=== PATIENT | male | born 2000 | race Caucasian/White ===

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

== ENCOUNTER 2023-08-24 12:50 | Emergency (ER) | payer BC, SELFPAY ==
[2023-08-24 12:58] VITALS: BP 112/67; PULSE 85; RESP 20; TEMP 36.8; O2SAT 100
--- NOTE | 2023-08-24 13:38 | ED.URI ---
HPI - URI/Sore Throat General Chief Complaint: Upper Respiratory Infection Stated Complaint: Ride side back shoulder pain Time Seen by Provider: 08/24/23 13:20 Source: patient, RN notes reviewed and old records reviewed Mode of arrival: ambulatory Limitations: no limitations History of Present Illness HPI Narrative: 22 year old male presents to [facility] with complaints of pain to his right side of back at shoulder region when he takes a deep breath which started this morning. Patient reports no shortness of breath or any recent cold or cough symptoms. Patient does voice history of child hameed asthma and he does vape. Pateint denies any fevers, chills or sweats or any body aches. Lungs are clear to ascultation with SAO2 100% on room air with no tachypnea. Patient denies any recent injury.or any history of any blood clotting dyscrasia. MD elicited complaint: other (pain right posterior back along shoulder blade when he takes deep breath) Pertinent past history: asthma (childhood) and other (vapes) Onset (ago): hour(s) (rhis morning) Consistency: intermittent Pain scale (0-10): 4 Able to tolerate fluids by mouth: Yes Exacerbating factors: deep breaths Treatments prior to arrival: none Related Data Allergies Allergy/AdvReac Type Severity Reaction Status Date / Time No Known Allergies Allergy Verified 08/24/23 13:20 Review of Systems Review of Systems: CONSTITUTIONAL: Denies malaise, chills, sweats, or fever. EYES: Denies visual changes, redness, or discharge. ENT: Reports rhinorrhea, congestion, sinus pain, otalgia and sore throat. CARDIOVASCULAR: Denies chest pain, palpitations, or edema. RESPIRATORY: Reports no cough.? Denies dyspnea.Reports pain to right posterior back along scpula with deep breathing intermittent GASTROINTESTINAL: Denies abdominal pain, nausea, vomiting, diarrhea SKIN: Denies rash or itching. MUSCULOSKELETAL: Denies myalgia. NEUROLOGIC: Denies headache. All systems reviewed & are unremarkable except as noted in HPI and below PMFSH Past Medical History Medical History (Updated 08/26/23 @ 11:52 by Nithya Morales NP) Anxiety and depression Asthma childhood Family History Family History Other Prediabetes Social History Social History (Updated 08/26/23 @ 11:53 by Nithya Morales NP) Smoking status: Current every day smoker Tobacco type: e-cigarettes/vaping Alcohol intake: never Substance use: current Substance use type: marijuana Living arrangements: with family Gender identity (if verbalized by the patient): Male Comments At time of signature, agree with nursing past medical, surgical, social and family history. There is no relevant family history pertinent to the presenting complaint Exam Narrative: GENERAL: Well-appearing, well-nourished, and in no acute distress. HEAD: Normocephalic EYES: PERRLA, conjunctivae clear ENT: Nares clear, turbinates edematous and erythematous, clear discharge. Mucous membranes moist. TM pearly guerra with dull light reflex bilaterally; no tragal tenderness. Oropharynx erythematous without lesions. Tonsils not enlarged and without exudate, no drooling, no hoarseness, no trismus, uvula midline. NECK: Supple. No lymphadenopathy CHEST: Clear to auscultation, breath sounds equal. No wheezing, rhonchi, rales, or stridor. No respiratory distress, speaks in full sentences.pain to right posterior back along scapula with deep breathing intermittent SAO2 100% on room air HEART: Regular rate and rhythm. No murmur heard. SKIN: Warm, dry, no rash. NEURO: Alert and oriented x3. PSYCH: Normal mood and affect Course Course Emergency Course: Patient is aware of diagnosis, understands and agrees to treatment plan.? Anticipatory guidance given.? Patient agrees to follow-up as directed and is aware of reasons to seek care at the emergency department. Portions of
== END 2023-08-24 13:55 | disposition home or self-care (01) ==
PROVIDERS: Emergency Provider Registered Nurse
DX: M94.0 Chondrocostal junction syndrome [Tietze] (principal); F17.290 Nicotine dependence, other tobacco product, uncomplicated; F12.90 Cannabis use, unspecified, uncomplicated
CPT/HCPCS: 99213; G0463

== ENCOUNTER 2024-03-30 13:10 | Emergency (ER) | payer SELFPAY ==
--- NOTE | 2024-03-30 13:26 | ED.URI ---
HPI - URI/Sore Throat General Chief Complaint: Upper Respiratory Infection Stated Complaint: cough/nausea/headache Time Seen by Provider: 03/30/24 13:26 Source: patient and RN notes reviewed Mode of arrival: ambulatory Limitations: no limitations History of Present Illness HPI Narrative: 23-year-old male presented for complaint of nasal congestion, headache, cough, x2 days. Reports nausea vomiting and fatigue yesterday. States he slept about 14 hours yesterday, but he feels better today. He took Sudafed and antihistamine. Denies known sick contacts. Denies shortness of breath, wheezing, or fever. MD elicited complaint: cough Related Data Home Medications Medication Instructions Recorded Confirmed No Home Medications 03/30/24 03/30/24 Allergies Allergy/AdvReac Type Severity Reaction Status Date / Time No Known Allergies Allergy Verified 08/24/23 13:20 Review of Systems Review of Systems: CONSTITUTIONAL: Endorses malaise, denies chills, sweats, fever EYES: Denies visual changes, redness, or discharge ENT: Reports rhinorrhea, congestion, sore throat CARDIOVASCULAR: Denies chest pain, palpitations, edema RESPIRATORY: Reports cough, Denies dyspnea GASTROINTESTINAL: Denies abdominal pain, reports nausea, vomiting SKIN: Denies rash or itching MUSCULOSKELETAL: Endorses myalgia NEUROLOGIC: endorses headache PMFSH Past Medical History Medical History Anxiety and depression Asthma childhood Family History Family History Other Prediabetes Social History Social History Smoking status: Current every day smoker Tobacco type: e-cigarettes/vaping Alcohol intake: never Substance use: current Substance use type: marijuana Living arrangements: with family Gender identity (if verbalized by the patient): Male Exam Narrative: GENERAL: well-appearing EYES: PERRLA, conjunctivae clear ENT: Mucous membranes moist. TMs pearly guerra with dull light reflex bilaterally; no tragal tenderness. Oropharynx erythematous without lesions or exudate, no drooling, no hoarseness, no trismus, uvula midline. No tripod positioning, muffled voice, soft palate or pharyngeal wall bulging NECK: Supple. No lymphadenopathy CHEST: Clear to auscultation, breath sounds equal. No wheezing, rhonchi, rales, or stridor. No respiratory distress, speaks in full sentences. HEART: Regular rate and rhythm. No murmur heard. SKIN: Warm, dry, no rash. NEURO: Alert and oriented x3. PSYCH: Normal mood and affect Course Course Emergency Course: Patient is aware of diagnosis, understands and agrees to treatment plan. Anticipatory guidance given. Patient agrees to follow-up as directed and is aware of reasons to seek care at the emergency department. Portions of this record may have been created with voice recognition software Level of Care: Express Care Visit Vital Signs Vital signs: Vital Signs Temperature 98.5 F 03/30/24 13:29 Pulse Rate 121 H 03/30/24 13:29 Respiratory Rate 20 03/30/24 13:29 Blood Pressure 121/69 03/30/24 13:29 Pulse Oximetry 98 03/30/24 13:29 Oxygen Delivery Room Air 03/30/24 13:29 Temperature 98.5 F 03/30/24 13:29 Pulse Rate 121 H 03/30/24 13:29 Respiratory Rate 20 03/30/24 13:29 Blood Pressure 121/69 03/30/24 13:29 Pulse Oximetry 98 03/30/24 13:29 Oxygen Delivery Room Air 03/30/24 13:29 reviewed MDM - URI/Sore Throat MDM Narrative Medical decision making narrative: Discussed physical exam findings and test results. Advised supportive measures and signs/symptoms to go to the ER. Pt is appropriate for outpt treatment and f/u. Differential Diagnosis Differential diagnosis: Likely upper respiratory infection, sinusitis and viral infection Lab Data Labs: Lab Results 03/30/24 Ran
[2024-03-30 13:29] VITALS: BP 121/69; PULSE 121; RESP 20; TEMP 36.9; O2SAT 98
[2024-03-30 13:33] LABS: EDSTREPNEGPOS1 Negative (Negative)
[2024-03-30 13:35] LABS: EDINFLUASCREEN Negative (Negative); EDINFLUBSCREEN Negative (Negative)
[2024-03-30 13:43] LABS: EDCOVIDSCREEN Negative (Negative)
== END 2024-03-30 13:55 | disposition home or self-care (01) ==
PROVIDERS: Emergency Provider Nurse Practitioner Family; PCP Nurse Practitioner Family
DX: J06.9 Acute upper respiratory infection, unspecified (principal); Z20.822 Contact with and (suspected) exposure to COVID-19; F17.290 Nicotine dependence, other tobacco product, uncomplicated
CPT/HCPCS: 87081; 87635; 87804; 87880; 99213; G0463